=== PATIENT | male | born 1990 ===

== ENCOUNTER 2023-01-17 11:48 | Emergency (ER) | payer SELFPAY ==
[~2023-01-17] VITALS: Ht 188 cm; Wt 83.0 kg
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
[2023-01-17] MEDS ORDERED: ONDANSETRON 4 MG (ZOFRAN) ORAL DISSOLVE TAB PO STA (13:38)
[2023-01-17] MEDS ORDERED: METH-732 PO (13:41)
[2023-01-17] MEDS ORDERED: ONDA4TAB11 SL (13:41)
[2023-01-17 13:52] VITALS: BP 134/86
== END 2023-01-17 13:52 ==
LOC: ER 11:55
DX: S06.0X1A Concussion with loss of consciousness of 30 minutes or less, initial encounter (principal); S16.1XXA Strain of muscle, fascia and tendon at neck level, initial encounter; S00.01XA Abrasion of scalp, initial encounter; R40.2362 Coma scale, best motor response, obeys commands, at arrival to emergency department; R40.2142 Coma scale, eyes open, spontaneous, at arrival to emergency department; R40.2252 Coma scale, best verbal response, oriented, at arrival to emergency department; Z28.310 Unvaccinated for COVID-19; V69.9XXA Occupant (driver) (passenger) of heavy transport vehicle injured in unspecified traffic accident, initial encounter; Y92.410 Unspecified street and highway as the place of occurrence of the external cause
CPT/HCPCS: 70450; 72125